=== PATIENT | male | born 1960 | race Two or more races ===

== ENCOUNTER 2017-09-05 12:08 | Outpatient (CLI) | payer BC ==
--- NOTE | 2017-09-05 16:42 | Diagnostic Imaging Report ---
Indication: SOB Technique: 2 views of the chest Comparison: none. Findings: Lungs and pleural spaces are clear. Heart size is normal. Bones are unremarkable.. Impression: No acute process
== END 2017-09-05 14:08 | disposition home or self-care (01) ==
LOC: RAD 12:08
DX: R06.02 Shortness of breath (principal); R07.89 Other chest pain
CPT/HCPCS: 71020

== ENCOUNTER → 2019-08-23 | Outpatient (CLI) | payer BC ==
--- NOTE | 2019-08-23 16:56 | Diagnostic Imaging Report ---
Indication: Shortness of breath Technique: 2 views of the chest Comparison: 09/05/2017 Findings: Lungs and pleural spaces are clear. The heart size is normal. The bones are unremarkable. No significant interim change. Impression: Negative
== END | disposition home or self-care (01) ==
LOC: RAD 15:10
DX: R06.02 Shortness of breath (principal)
CPT/HCPCS: 71046